=== PATIENT | male | born 1970 | race Caucasian/White ===

== ENCOUNTER 2023-11-10 06:51 | Day surgery (SDC) | payer OTHER, SELFPAY ==
[2023-10-31 06:36] VITALS: BMI 22.7
[2023-10-31 08:44] LABS: Hematocrit 41.2 % (39.0-52.0); Hemoglobin 14.3 g/dL (13.0-18.0); Mean Corp Hgb Conc. 34.7 g/dL (33.0-37.0); Mean Corpuscular Hgb 31.8 pg (27.0-31.0); Mean Corpuscular Volume 91.8 fL (80.0-94.0); Mean Platelet Volume 10.2 fL (7.4-10.4); Platelet Count 273 10^3/uL (130-400); Red Blood Cell Count 4.49 10^6/uL (4.70-6.10); Red Cell Dist. Width 12.2 % (11.5-14.5); White Blood Cell Count 4.3 10^3/uL (4.8-10.8)
[2023-10-31 08:59] LABS: Blood Urea Nitrogen 14 mg/dl (9-20); Calcium 9.7 mg/dl (8.4-10.2); Carbon Dioxide 27 mmol/L (22-30); Chloride 104 mmol/L (98-107); Estimated Creatinine Clearance 76 ml/min; Glucose 82 mg/dl (70-99); Potassium 4.8 mmol/L (3.5-5.1); Sodium 140 mmol/L (135-145); eGFR > 60.00
[2023-11-10] VITALS (8 sets, daily range): BP systolic 128–149; BP diastolic 62–95; BMI 22.7
[2023-11-10] MEDS: NORMOSOL-R 1000 IV (06:38)
[2023-11-10] MEDS: TYLENOL 1000 MG PO (06:38)
--- NOTE | 2023-11-10 07:06 | HP.FOC2 ---
Focused History & Physical
Chief Complaint
HPI:
Chief Complaint: Bilateral inguinal hernias, umbilical hernia
HPI / Indication for Planned Procedure: Patient is a 53-year-old male previously seen in outpatient surgical evaluation secondary to discomfort in the right inguinal region with associated swelling. Physical examination does confirm the presence of
both a right and left inguinal hernia. There is also a small protrusion present in the region of his umbilicus consistent with an umbilical hernia. He presents today for scheduled operative correction of his hernias.
Relevant Past Medical History: Other (Migraines, GERD)
Relevant Social History: Negative
Relevant Family History: Negative
Relevant Past Surgical History: Positive for (ACL, left knee meniscus)
Review of Systems
Review of Pertinent Systems: All Systems Negative
Medication
See Medication form for detailed medications: Yes
Medication List (including Herbals & OTC):
Cbd Tincture 1 drp PO HS 11/03/23
Vitamin D3 1 cap PO DAILY 11/03/23
coenzyme Q10 100 mg capsule (CoQ-10) 100 mg PO HS 11/03/23
fluticasone propionate 50 mcg/actuation nasal spray,suspension 1 spray intranasal DAILY 11/03/23
pravastatin 80 mg tablet 80 mg PO HS 11/03/23
Medications Reviewed: Yes
Allergies and Reactions
Patient has Allergies: Yes
Noted Allergies and Reactions:
Allergy/AdvReac Type Severity Reaction Status Date / Time
pollen extracts Allergy seasonal Verified 11/10/23 06:20
allergies
Pertinent Physical Exam
All Other Systems: Negative
Head/Neck: Normal
Lungs: Normal
Heart: Normal
Abdomen: Other (Bilateral inguinal hernias right side slightly larger than left, reducible umbilical hernia)
Extremities: Normal
Neurological: Normal
Diagnosis / Assessment
53-year-old male presenting for scheduled operative correction bilateral inguinal hernias and umbilical hernia
Plan / Procedure
Laparoscopic repair bilateral inguinal hernias with mesh, open umbilical herniorrhaphy with possible mesh
Anesthesia/Sedation to be done by Anesthesia Provider: Yes
--- NOTE | 2023-11-10 07:18 | W.SUR.PREOP ---
Pre-Operative Surgical Note
-
I have examined this patient prior to the performance of the scheduled procedure.
The patient's condition is unchanged from the time of the current History and
Physical and the patient is able to undergo the scheduled procedure.
--- NOTE | 2023-11-10 09:50 | W.IMMPOSTOP ---
Addendum entered and electronically signed by Natalio Frost MD 11/10/23 10:32:
The assistance of Yadi oDn PA-C was required due to the complexity of the procedure. During the procedure Yadi Don PA-C assisted with laparoscopic port placement, instrumentation, camera operation, exposure and closure of the surgical
incision sites. I was present for the entirety of the operative procedure.
#[id number]
Original Note:
Surgical Immed Post Op Note
-
Primary Surgeon: Santosh
Assisting Surgeon: Yadi Don PA-c
Pre-op Diagnosis: Bilateral inguinal hernias, umbilical hernia
Post-op Diagnosis: Bilateral inguinal hernias -right indirect, left recurrent direct
Supraumbilical ventral hernia and umbilical hernia -2.5 cm maximal length
Procedure Performed: Laparoscopic TEP repair bilateral inguinal hernias with mesh; 3D max large mid weight
Open ventral/umbilical hernia repair with mesh; Ventralex ST 6.4 cm round
Anesthesia Type: GETA +0.25% Marcaine
Specimen / Cultures: None
Estimated Blood Loss: 12 mL
Complications: None immediate
Operative Findings: Total extraperitoneal bilateral inguinal herniorrhaphy. Right indirect inguinal hernia, no lipoma of canal/cord. 3D max large mid weight mesh repair single transfixion site to David's with tack. Recurrent left direct inguinal
hernia, slight scarring and indirect space from previous history of open inguinal herniorrhaphy as a child. No lipoma of canal/cord. 3D max large mid weight mesh repair, single transection site to David's with tach. No peritoneal entry with
dissection.
Subcentimeter fascial defect at umbilicus, approximately 2 cm supraumbilical ventral hernia defect. Underlay preperitoneal mesh repair with Ventralex 6.4 cm round. Closure of fascial defects individually with interrupted [id number]
0 PDS suture.
[2023-11-10] MEDS: ROXICODONE 5 MG PO (11:19)
== END 2023-11-10 11:56 | disposition home or self-care (01) ==
LOC: SDS 06:51
PROVIDERS: ATTENDING PHYSICIAN Surgery; FAMILY PHYSICIAN Internal Medicine Geriatric Medicine
DX: K40.90 Unilateral inguinal hernia, without obstruction or gangrene, not specified as recurrent (principal); K40.91 Unilateral inguinal hernia, without obstruction or gangrene, recurrent; K43.9 Ventral hernia without obstruction or gangrene; K42.9 Umbilical hernia without obstruction or gangrene
CPT/HCPCS: 49651; 49650; 49615; 36415; 80048; 85027; 93005; C1781

== ENCOUNTER → 2025-02-07 06:50 | Outpatient (REF) | payer OTHER, SELFPAY | LOC: RAD 06:50 | PROVIDERS: ATTENDING PHYSICIAN Internal Medicine Geriatric Medicine | DX: Z00.00 Encounter for general adult medical examination without abnormal findings (principal); E78.2 Mixed hyperlipidemia; I10 Essential (primary) hypertension; E03.9 Hypothyroidism, unspecified; E55.9 Vitamin D deficiency, unspecified; R05.3 Chronic cough; K21.9 Gastro-esophageal reflux disease without esophagitis; M54.16 Radiculopathy, lumbar region; Z13.89 Encounter for screening for other disorder | CPT/HCPCS: 93975 ==

== ENCOUNTER → 2025-03-13 13:52 | Outpatient (REF) | payer OTHER, SELFPAY | LOC: DHSLP 13:52 | PROVIDERS: ATTENDING PHYSICIAN Internal Medicine Geriatric Medicine | DX: G47.33 Obstructive sleep apnea (adult) (pediatric) (principal); G47.61 Periodic limb movement disorder | CPT/HCPCS: 95810 ==